=== PATIENT | female | born 1955 ===

== ENCOUNTER 2017-07-20 07:44 | Emergency (ER) | payer BC ==
[2017-07-20 08:29] VITALS: RESP 18; O2SAT 99
[2017-07-20 09:31] LABS: BASO % 0.5 % (0.0-2.0); BLOOD UREA NITROGEN 11 mg/dl (7-17); CALCIUM 9.2 mg/dL (8.4-10.2); CARBON DIOXIDE 26 mmol/L (22-30); CHLORIDE 106 mmol/L (98-107); EOS % 0.5 % (0.0-4.0); GFR AFRICAN-AMERICAN > 60; GLUCOSE,RANDOM 126 mg/dL (65-105); HEMATOCRIT 40.9 % (34.0-47.0); LYMPH # 1.2 K/uL (1.0-4.3); MEAN CELL VOLUME 99.1 fl (81.0-99.0); MEAN CORPUSCULAR HEMOGLOBIN 32.1 pg (27.0-31.0); MEAN CORPUSCULAR HGB CONC 32.4 g/dL (33.0-37.0); MEAN PLATELET VOLUME 9.2 fl (7.2-11.7); MONO # 0.4 K/uL (0.0-0.8); MONO % 7.9 % (0.0-10.0); NEUT # 3.8 K/uL (1.8-7.0); NEUT % 69.1 % (50.0-75.0); NRBC % 0.1 % (0.0-0.0); POTASSIUM 3.7 MMOL/L (3.6-5.0); RED CELL DISTRIBUTION WIDTH 14.1 % (11.5-14.5); SODIUM 143 mmol/l (132-148); WHITE BLOOD COUNT 5.6 K/uL (4.8-10.8)
--- NOTE | 2017-07-20 10:35 | ED PDOC ---
HPI: Trauma/Fall - HPI Time Seen by Provider: 07/20/17 08:18 Chief Complaint (Nursing): Trauma Chief Complaint (Provider): Disorientation and confusion History Per: Patient, EMS, Family History/Exam Limitations: no limitations Onset/Duration Of Symptoms: Hrs Additional Complaint(s): Patient is a 61 y/o female with a past medical history of diabetes, hypertension , and hypercholesterolemia brought to the emergency department by EMS for a resolved episode of disorientation and confusion associated with hypoglycemia this morning. Per family, patient was sleeping on the couch when she coughed and fell onto the floor in a disoriented and confused state. After giving her a dose of insulin, patient's daughter called EMS who found that her blood sugar level was in the 40s (mg/dL). Patient woke up on her own in an oriented and alert state and remembered everything afterwards (but not prior to waking up). Denies headache, chest pain, shortness of breath, or other complaints. Patient reports taking insulin twice a day and metformin for her diabetes. PCP: none provided. Past Medical History Reviewed: Historical Data, Nursing Documentation, Vital Signs Vital Signs: Last Vital Signs Temp 97.8 F 07/20/17 08:27 Pulse 88 07/20/17 08:27 Resp 18 07/20/17 08:27 BP 165/87 H 07/20/17 08:27 Pulse Ox 99 07/20/17 08:27 - Medical History PMH: Diabetes, HTN, Hypercholesterolemia, Kidney Stones - Surgical History Surgical History: No Surg Hx - Family History Family History: States: Unknown Family Hx - Social History Current smoker - smoking cessation education provided: No Ex-Smoker (has not smoked in the last 12 months): No Alcohol: None Drugs: Denies - Home Medications Home Medications: Ambulatory Orders Medication Instructions Recorded Insulin. 07/01/15 Metformin 07/01/15 Atorvastatin [Lipitor] 20 mg PO DAILY 07/20/17 Empagliflozin [Jardiance] 25 mg PO DAILY 07/20/17 Tramadol Hydrochloride [Tramadol] 50 mg PO Q6 PRN 07/20/17 - Allergies Allergies/Adverse Reactions: Allergies Allergy/AdvReac Type Severity Reaction Status Date / Time No Known Allergies Allergy Unverified 07/01/15 21:56 Review of Systems ROS Statement: Except As Marked, All Systems Reviewed And Found Negative Cardiovascular: Negative for: Chest Pain Respiratory: Negative for: Shortness of Breath Neurological: Positive for: Confusion (resolved episode), Other (loss of consciousness). Negative for: Headache Physical Exam - Reviewed Nursing Documentation Reviewed: Yes Vital Signs Reviewed: Yes - Physical Exam Appears: Positive for: Well, Non-toxic, No Acute Distress Head Exam: Positive for: ATRAUMATIC, NORMAL INSPECTION, NORMOCEPHALIC Skin: Positive for: Normal Color, Warm, Dry Eye Exam: Positive for: Normal appearance Neck: Positive for: Normal, Painless ROM, Supple Cardiovascular/Chest: Positive for: Regular Rate, Rhythm. Negative for: Murmur Respiratory: Positive for: Normal Breath Sounds. Negative for: Accessory Muscle Use, Respiratory Distress Gastrointestinal/Abdominal: Positive for: Normal Exam, Soft. Negative for: Tenderness Back: Positive for: Normal Inspection Extremity: Positive for: Normal ROM Neurologic/Psych: Positive for: Alert, Oriented (x3) - Laboratory Results Result Diagrams: 07/20/17 09:05 07/20/17 09:05 - ECG ECG Rhythm: Positive for: Normal QRS, Normal ST Segment, Sinus Rhythm. Negative for: ST/T Changes Rate: 71 O2 Sat by Pulse Oximetry: 99 (RA) Pulse Ox Interpretation: Normal - Progress Re-evaluation Time: 13:00 Condition: Re-examined, Improved Medical Decision Making Medical Decision Making: Time: 08:41 Initial impression: hypoglycemia, syncope Initial plan: CT Head scan w/o contrast EKG Reevaluation 10:[address] Scan reviewed. Findings noted as follows: HEMORRHAGE: No intracranial hemorrhage. BRAIN: Mild chronic periventricular white matter ischemic changes. The. 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 . Minor vascular calcifications both carotid siphons VENTRICLES: Unremarkable. No hydrocephalus. CALVARIUM: Unremarkable. PARANASAL SINUSES: Unremarkable as visualized. No significant inflammatory changes. MASTOID AIR CELLS: Unremarkable as visualized. No inflammatory changes. OTHER FINDINGS: None. IMPRESSION: No evidence of acute intracranial hemorrhage. Mild chronic white matter ischemic changes. 12:29 Patient's blood sugar level will be closely monitored. Currently at 123 mg/dL. Her previous blood sugar level after eating was 90 mg/dL. Scribe Attestation: Documented by Tamera Eastman, acting as a scribe for Sharonda Dhaliwal MD. Provider Scribe Attestation: All medical record entries made by the Scribe were at my direction and personally dictated by me. I have reviewed the chart and agree that the record accurately reflects my personal performance of the history, physical exam, medical decision making, and the department course for this patient. I have also personally directed, reviewed, and agree with the discharge instructions and disposition. Disposition - Clinical Impression Clinical Impression: Diabetic hypoglycemia - Patient ED Disposition Is Patient to be Admitted: No Doctor Will See Patient In The: Office Counseled Patient/Family Regarding: Studies Performed, Diagnosis, Need For Followup - Disposition Referrals: [facility] [Outside] Disposition: Routine/Home Disposition Time: 13:46 Condition: GOOD Additional Instructions: Take insulin at night. DO not take insulin in the morning. Check your blood sugars regularly. Eat well. Follow up with your PCP in 2-3 days. Instructions: Diabetic Hypoglycemia (DC)
--- NOTE | 2017-07-20 10:41 | CT ---
PROCEDURE: CT HEAD WITHOUT CONTRAST. HISTORY: syncope COMPARISON: None available. TECHNIQUE: Axial computed tomography images were obtained through the head/brain without intravenous contrast. Radiation dose: Total exam DLP = 819.5 mGy-cm. This CT exam was performed using one or more of the following dose reduction techniques: Automated exposure control, adjustment of the mA and/or kV according to patient size, and/or use of iterative reconstruction technique. FINDINGS: HEMORRHAGE: No intracranial hemorrhage. BRAIN: Mild chronic periventricular white matter ischemic changes. The. 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 . Minor vascular calcifications both carotid siphons VENTRICLES: Unremarkable. No hydrocephalus. CALVARIUM: Unremarkable. PARANASAL SINUSES: Unremarkable as visualized. No significant inflammatory changes. MASTOID AIR CELLS: Unremarkable as visualized. No inflammatory changes. OTHER FINDINGS: None. IMPRESSION: No evidence of acute intracranial hemorrhage. Mild chronic white matter ischemic changes. .
--- NOTE | 2017-07-20 11:23 | CARD ---
APPROVED REPORT EKG Measurement Heart [id number] <Conclusion> Normal sinus rhythm Normal ECG
[2017-07-20 12:52] VITALS: TEMP 98.3
[2017-07-20 14:12] VITALS: BP 136/75; PULSE 68
== END 2017-07-20 14:37 | disposition home or self-care (01) ==
LOC: H.ER 07:44
DX: E11.649 Type 2 diabetes mellitus with hypoglycemia without coma (principal); I10 Essential (primary) hypertension; Z79.4 Long term (current) use of insulin